=== PATIENT | male | born 1930 | race Caucasian/White ===

== ENCOUNTER 2016-11-10 14:43 | Observation (INO) | payer MEDICARE ==
[2016-11-10 15:44] LABS: ABSOLUTE NEUTROPHIL COUNT 3.1 K/mm3 (1.8-7.7); BASO % 0.2 % (0.2-1.0); HEMATOCRIT 31.7 % (32.0-52.0); HEMOGLOBIN 9.5 gm/l (14.0-18.0); IMM NEUT # 0.1 K/mm3 (0-0.2); IMM NEUT% 3.5 % (0-1); LYMPH # 0.7 (1.0-4.8); LYMPH % 17.4 % (15-45); MEAN CELL VOLUME 108.2 fl (80.0-94.0); MEAN CORPUSCULAR HEMOGLOBIN 32.4 pg (27.0-31.0); MEAN PLATELET VOLUME 11.2 fl (7.4-10.4); MONO # 0.1 (0.0-0.8); MONO % 1.5 % (4-12); NEUT % 76.4 % (43-75); PLATELET COUNT 79 K/mm3 (130-400); RED CELL DISTRIBUTION WIDTH 17.4 % (11.5-14.5)
[2016-11-10 15:52] LABS: CALCIUM 8.5 mg/dL (8.6-10.3)
--- NOTE | 2016-11-10 15:58 | CT ---
EXAMINATION: Noncontrast cranial CT. CLINICAL INDICATION: Ground-level fall. Head trauma. Scalp swelling. TECHNIQUE: A noncontrast cranial CT scan was obtained. Axial images were acquired from just above the vertex through the skull base. 4 mm stacked axial, coronal, and sagittal reconstructions were reviewed. COMPARISONS: None FINDINGS: The CSF containing spaces are prominent throughout. There is diminished attenuation within the periventricular white matter tracts bilaterally. No acute intercranial hemorrhage, mass or mass effect is identified. No extra-axial fluid collections are detected. The visualized segments of the posterior fossa are unremarkable. The cerebellar pontine angle cisterns are symmetric. The osseous structures are intact. The paranasal sinuses are clear. The visualized portions of the orbits are unremarkable. The mastoid sinuses are normal and symmetric. There is a right posterior scalp hematoma. No adjacent fracture is identified. IMPRESSION: No acute intracranial abnormalities identified. There is moderate global diffuse atrophy and microvascular ischemic changes. Right posterior scalp hematoma is noted. The findings were uploaded to the electronic medical record for review at approximately 4:00 PM 11/10/2016
--- NOTE | 2016-11-10 16:03 | CT ---
EXAMINATION: Cervical spine CT without contrast. CLINICAL INDICATION: Ground-level fall. Head trauma. Neck pain. COMPARISON: Prior cervical spine radiographs dated 06/14/2006 TECHNIQUE: [employer] 64 slice scanner was utilized. The examination is diagnostic. Axial images were acquired from the posterior fossa to the T2 vertebral body. 2 mm stacked images were acquired in the axial, sagittal, and coronal planes. Bone and soft tissue windows were utilized. FINDINGS: There is normal alignment of the cervical vertebral bodies. No displaced fracture is identified. Multilevel facet arthropathy is noted. No acute spinous process fracture is identified. Calcifications posterior to the spinous processes of the upper cervical levels are again evident. There is multilevel intervertebral disc space narrowing with endplate sclerosis and osteophyte formation. The paravertebral soft tissues are unremarkable The visualized segments of the lung apices are unremarkable. IMPRESSION: No displaced cervical fracture is identified. Multilevel spondylosis changes are noted. The findings were uploaded to the electronic medical record for review at approximately 4:04 PM 11/10/2016
--- NOTE | 2016-11-10 16:26 | RAD ---
EXAMINATION: ELBOW -RIGHT 3-4 VIEWS CLINICAL INDICATION: Fall. Right elbow pain. COMPARISON:None FINDINGS: No displaced fractures currently identified. The joint space relationships of the right elbow are maintained. Anterior posterior fat pads are noted involving the distal humerus. A nondisplaced fracture cannot be excluded. IMPRESSION: Right elbow effusion. A nondisplaced fracture cannot be excluded. The joint space relationships are maintained.
--- NOTE | 2016-11-10 16:29 | RAD ---
EXAMINATION:CHEST - 2 VIEWS CLINICAL INDICATION: Ground-level fall. Injuries. COMPARISON: Single view chest dated 12/16/2010 FINDINGS: Heart size remains stable. Atherosclerotic plaquing of the thoracic aorta is noted. There is no adenopathy identified. There is no pleural effusion. Very prominent bronchovascular markings are noted. Coarsened interstitial changes involve the lower lung zones. There is no hyperinflation. Median sternotomy wires are noted. IMPRESSION: Prominent interstitium involving the lower lung zones. Findings may reflect CHF versus chronic fibrotic change. These are more pronounced in comparison to 12/16/2010. Patient status post median sternotomy. Senescent changes of the chest are noted.
[2016-11-10 16:51] LABS: TROPONIN I 0.02 ng/ml (0.0-0.06)
[2016-11-10 16:54] LABS: CKMB ISOENZYME 2.7 ng/ml (0.6-6.3)
[2016-11-10] MEDS ORDERED: PNEUMOCOCCAL 23-VAL P-SAC VAC 0.5 ML VIAL IM V ONE (18:21)
[2016-11-10] MEDS ORDERED: BISACODYL 5 MG TABLET.EC PO PRN (19:28)
[2016-11-10] MEDS ORDERED: SODIUM CHLORIDE 0.9% 100 ML IV PRN (19:28)
[2016-11-10] MEDS ORDERED: CALCIUM CARBONATE 500 MG TAB.CHEW PO PRN (19:28)
[2016-11-10] MEDS ORDERED: BLISTEX LIPSTICK 1 EACH TP PRN (19:28)
[2016-11-10] MEDS ORDERED: BISACODYL 10 MG SUP PR PRN (19:28)
[2016-11-10] MEDS ORDERED: ACETAMINOPHEN 325 MG TABLET PO PRN (19:28)
[2016-11-10] MEDS ORDERED: MENTHOL/CETYLPYRD 1 EACH LOZENGE PO PRN (19:28)
[2016-11-10] MEDS ORDERED: SODIUM CHLORIDE 0.9% 1,000 ML IV SCH (19:30)
[2016-11-10] MEDS ORDERED: INSULIN ASPART (DOSE) 100 UNITS/1 ML SUB-Q PRN (20:00)
[2016-11-10] MEDS ORDERED: CEFTRIAXONE 1 GRAM DUPLEX 1 G in Premix (D5W) 50 ml 1 EACH IV SCH (20:15)
[2016-11-10 20:32] LABS: FOLIC ACID > 23.6 ng/mL (>5.9)
[2016-11-10 20:45] LABS: MAGNESIUM 1.8 mg/dL (1.9-2.7)
[2016-11-10] MEDS ORDERED: INSULIN GLARGINE (DOSE) 100 UNITS/ML UNIT SUB-Q SCH (21:00)
[2016-11-10] MEDS: DOCUSATE SODIUM 100 MG CAPSULE PO SCH (21:18)
[2016-11-10] MEDS: PANTOPRAZOLE 40 MG TABLET DR PO SCH (21:18)
[2016-11-10] MEDS: FERROUS SULFATE (65 Fe) 325 MG TABLET PO SCH (21:18)
[2016-11-10] MEDS: SODIUM BICARBONATE 650 MG TABLET PO SCH (21:40)
[2016-11-10 22:32] LABS: URINE BILIRUBIN NEGATIVE (NEGATIVE); URINE BLOOD 1+ (NEGATIVE); URINE GLUCOSE (UA) NEGATIVE (NEGATIVE); URINE LEUKOCYTE ESTERASE 1+ (NEGATIVE); URINE NITRITE NEGATIVE (NEGATIVE); URINE PROTEIN 1+ (NEGATIVE); URINE UROBILINOGEN NORMAL (0-1 mg/dl)
[2016-11-10 22:38] LABS: URINE APPEARANCE SL CLOUDY; URINE COLOR YELLOW
[2016-11-10 22:39] LABS: URINE BACTERIA 4+; URINE EPITHELIAL CELLS 0 /hpf
[2016-11-11 06:13] LABS: ABSOLUTE NEUTROPHIL COUNT 2.6 K/mm3 (1.8-7.7); BASO % 0.3 % (0.2-1.0); EOS # 0.1 (0.0-0.5); EOS % 1.3 % (0.9-2.9); HEMATOCRIT 29.8 % (32.0-52.0); HEMOGLOBIN 8.9 gm/l (14.0-18.0); IMM NEUT # 0.1 K/mm3 (0-0.2); IMM NEUT% 2.6 % (0-1); LYMPH % 26.7 % (15-45); MEAN CELL VOLUME 109.2 fl (80.0-94.0); MEAN CORPUSCULAR HEMOGLOBIN 32.6 pg (27.0-31.0); MEAN CORPUSCULAR HGB CONC 29.9 g/dl (33.0-37.0); MEAN PLATELET VOLUME 11.3 fl (7.4-10.4); MONO # 0.1 (0.0-0.8); MONO % 2.6 % (4-12); NEUT % 66.5 % (43-75); PLATELET COUNT 75 K/mm3 (130-400); RED CELL DISTRIBUTION WIDTH 17.2 % (11.5-14.5)
[2016-11-11 06:26] LABS: ALB/GLOB RATIO 1.4 (>1.0); ALBUMIN 3.4 gm/dL (3.5-5.7); CALCIUM 8.3 mg/dL (8.6-10.3)
[2016-11-11] MEDS ORDERED: LEVOTHYROXINE SODIUM 150 MCG TABLET PO SCH (07:30)
[2016-11-11 08:15] VITALS: BP 114/58
--- NOTE | 2016-11-11 08:16 | HP ---
Richy Young [id number] CHIEF COMPLAINT: Syncope. HISTORY OF PRESENT ILLNESS: The patient is an 86-year-old male who had gone to the [employer] store today. As he was leaving he had fallen and was not immediately responsive afterwards. It is unclear whether he had a loss of consciousness prior to the fall. He did strike his head leaving a large hematoma on his right parietal area and struck his right elbow although he denies any significant pain in either area. The people of the [employer] store who saw him fall ran to him and he had a return of consciousness, but was slightly irritable and somewhat confused not remembering how he had gotten his shopping items there. He was initially going to drive home, but then the people drove him home instead and he was brought to the [facility]. [facility] he was noted to have poor recent memory and so they called his family and they had brought him here. His daughter notes that he know appears to be back to himself. Patient was noted to have a goose egg like hematoma on the right posterior parietal area and some bruising on his right elbow, but otherwise he reports feeling himself and his daughter indicates he is back to feeling like himself now at this time. He denies pain. He has not had any other recent illness, but did have a urinary tract infection that was treated about a month ago. PAST MEDICAL HISTORY: Remarkable for anemia attributed to chronic kidney disease, treated with Aranesp. He has had a history of bladder cancer with high grade urothelial carcinoma treated with urostomy and ileal conduit, and cystectomy. He has had previous history of carotid artery stenosis with a CEA on the left. He has had chronic kidney disease stage IV and his baseline creatinine has been in the 2 to 3 region over the last couple of years. He has coronary artery disease, status post bypass, diabetes mellitus type 2 on insulin therapy. He has gastroesophageal reflux disease and a previous history of gastrointestinal bleed, transfused 5 units in June 2015 associated with an ulcer, history of hypertension and has been on medicines, but these have been reduced somewhat recently, hypothyroidism, moderate to severe aortic stenosis noted on echo September 2016, and he has had a history of paroxysmal atrial fibrillation. In the emergency room his daughter reports he had some atrial fibrillation. PAST SURGICAL HISTORY: Urostomy at the ileal conduit, robotic cystectomy, three vessel bypass, atrial ablation 2010, and left carotid endarterectomy. ALLERGIES: No known drug allergies. MEDICATIONS: 1. Atorvastatin 20 mg daily. 2. Vitamin D 2000 units daily. 3. Amiodarone had been discontinued recently in favor of metoprolol XL 25 mg daily. 4. Apidra AC 8 units for blood sugar up to 150, 12 units for a blood sugar of 151-250, 16 units for 251 and up. 5. He uses 15 units of Lantus at bedtime. 6. He uses pantoprazole 40 mg twice daily. 7. Renovite daily. 8. Sodium bicarbonate 650 mg three times daily. 9. Synthroid 150 mcg daily. CODE STATUS: Do not resuscitate. SOCIAL HISTORY: He is . He lives at the [facility]. He has two kids. He has a history of smoking, quit in . He is a retired banker. He has 1-2 drinks a week. he is [employer]. He enjoys fishing, hunting, and watching [place] [employer]. No pets. 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 FAMILY HISTORY: Father at age 83. Mom in her 70's of diabetes. REVIEW OF SYSTEMS: Eyes have been okay. No double vision. Ears: He uses hearing aids with moderate improvement. Nose is okay. Mouth is okay. He denies any dental pain or difficulty with chewing or malalignment. Tongue is okay. Speech is okay. Neck is okay. Breathing is okay. No heart complaints. No chest pain. Stomach is okay. No vomiting. He has had no diarrhea, no constipation. He has an ileostomy that has been present and is not bothering him. He denies any pain from fall, but does have his right arm wrapped up. Legs have been okay, although his daughter notes his legs are very weak and attributes some of this to deconditioning associated with carrying for his late when she was ill. He has had no history of stroke. He may have had a history of myocardial infarction in the past possibly suggested by his EKG. He is do not resuscitate status. PHYSICAL EXAMINATION: GENERAL: Nontoxic male alert and appropriate. VITAL SIGNS: He is reported to be 120 kg although, that seems higher than I might estimate. He is reported 5 feet 7 inches, respirations 18, blood pressure 156/70, temperature 98.0, 100% saturation on room air. HEENT: Head: He has a scalp hematoma on the right posterior parietal area, but no evidence of skull fracture or significant pain. The skin is intact and is not bleeding. Eyes are unremarkable. Pupils are equal, round, and reactive. Ears have hearing aids present bilaterally and is still somewhat hard of hearing. Nose is unremarkable. Oropharynx: Dentition is good. Mucous membranes are moist. NECK: Well healed left carotid endarterectomy scar noted. Transmitted aortic stenosis bruit is noted bilaterally in the neck. LUNGS: Clear to auscultation bilaterally. HEART: Generally regular rate and rhythm in the 90's with frequent PVC's noted on telemetry. Patient has a 3 to 4 systolic ejection murmur noted throughout the pericardium consistent with his diagnosis of atrial stenosis. ABDOMEN: Soft, nontender, nondistended. Bowel sounds are normal. No rebound, no guarding. He has a urostomy with slightly cloudy urine noted. He is not particularly tender. GENITOURINARY: Grossly normal male. EXTREMITIES: Legs, old scarring on the shins. 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 There is some hammertoe deformity, but no cellulitis, no edema, no other significant abnormality. Right arm is in splint, but fingers move well. Perfusion appears to be good. NEURO: Patient is alert and answers appropriately. LABORATORY: White count 4.0, hemoglobin 9.5, platelets 79, MCV is 108. Sodium 137, potassium 4.3, chloride 116, CO2 12, BUN 58, creatinine 3.2, glucose 137, calcium 8.5. Troponin 0.02, BNP 163, CK-MB 2.7. DIAGNOSTICS: Elbow x-ray right elbow effusion suggested but cannot rule out fracture. Chest x-ray prominent interstitium noted lower lung zones, congestive heart failure versus fibrosis status post median sternotomy. C-spine CT no fracture. Brain CT no acute changes intracranially, but a right hematoma noted externally. EKG sinus rhythm, frequent PVC's 82 beats per minute. EKG suggests right bundle branch block, OR 194, QRS 108, incomplete right bundle branch block, QTC 403, axis 22, Q-wave noted in V1. ASSESSMENT AND PLAN: 1. Syncope with head injury, possible concussion, however, resolved. Patient has multiple reasons for syncope including history of atrial fibrillation, medications revised, known aortic stenosis, previous carotid disease, anemia. We will be checking ultrasound for subclavian steal. We will monitor hemoglobin. Continue on telemetry. His recent echo had shown known moderate to severe aortic stenosis. 2. Chronic anemia with history of chronic kidney disease on Aranesp. Will monitor hemoglobin and hematocrit. With elevated MCV we will check B12 and folate. He may have a myelodysplasia with a mild pancytopenia seen. Follow up per primary care and nephrology. 3. Chronic kidney disease with a creatinine of 3.2 mildly elevated from before. Plan gentle intravenous fluids over night and will monitor. 4. Contusion head and right elbow, we will monitor. He at this time does not complain of these. 5. Reported deconditioning with generalized weakness. Plan physical therapy and occupational therapy. 6. History of urostomy with remote history of bladder cancer. We will check urinalysis for the possibility of a urinary tract infection contributing to syncope. 7. Diabetes mellitus type 2. We will plan to use Lantus and sliding scale insulin. 8. Do not resuscitate status ordered. 9. Venous thrombosis prophylaxis. Encourage ambulation and activity. JOB: CC: Dr. Laura Rajan, data integration architect Dr. Karie Luke, laminating press operator
[2016-11-11] MEDS: FERROUS SULFATE (65 Fe) 325 MG TABLET PO SCH (08:41)
[2016-11-11] MEDS: DOCUSATE SODIUM 100 MG CAPSULE PO SCH (08:42)
[2016-11-11] MEDS: PANTOPRAZOLE 40 MG TABLET DR PO SCH (08:42)
[2016-11-11] MEDS: SODIUM BICARBONATE 650 MG TABLET PO SCH (08:42)
[2016-11-11] MEDS ORDERED: FOLIC ACID PO SCH (09:00)
[2016-11-11] MEDS ORDERED: METOPROLOL SUCCINATE 25 MG TAB.ER.24H PO SCH (09:00)
[2016-11-11] MEDS ORDERED: VITAMIN D3 1,000 UNITS CAP.LIQ PO SCH (09:00)
[2016-11-11] MEDS ORDERED: VITAMIN B COMP W C PO SCH (09:00)
--- NOTE | 2016-11-11 09:49 | US ---
CAROTID ULTRASOUND HISTORY: Syncope, prior endarterectomy. Sonography was performed of the extracranial vessels with a focus on the arterial structures. Measurement of carotid stenosis is based on velocity parameters that correlate the residual internal carotid diameter with [place] Symptomatic Carotid Endarterectomy Trial (NASCET)-based stenosis levels. GRAYSCALE IMAGING: Intimal wall thickening with soft plaque deposition at the carotid bifurcation without gross stenosis by visual inspection. Postprocedural change of the left carotid bifurcation compatible with history of endarterectomy with irregular plaque deposition along the left common carotid artery. Evaluation of the mid to distal left internal carotid artery is limited due to artifact. ? PULSED-WAVE DOPPLER DATA (peak systolic velocity/end-diastolic velocity [cm/s]) Right proximal CCA: 100/26 Right distal CCA: 105/29 Right proximal ICA: 120/32 Right distal ICA: 164/48 Right ECA: 386/diastolic velocity not acquired. Right vertebral: 38/diastolic velocity not acquired. Left proximal CCA: 187/36 Left distal CCA: 201/28 Left proximal ICA: 160/38 Left distal ICA: Absent versus mildly reversed end-diastolic flow identified. Peak systolic velocity approximately 120 cm/s. Left ECA: 154/diastolic velocity not acquired. Left vertebral: 49/diastolic velocity not acquired. ICA/CCA RATIOS: 1.6 on the right, 0.8 on the left. VERTEBRAL ARTERY FLOW: Antegrade. IMPRESSION: Postprocedural change of the left carotid bifurcation with increased velocities suspicious for 50-69% stenosis of the internal carotid artery. Elevated velocities of the common carotid artery suggest a proximal stenosis, consider CTA or MRA assessment of the neck. Elevated velocities compatible with 50-60% stenosis of the mid to distal right internal carotid artery. Antegrade flow within the vertebral arteries. Preliminary report relayed to the Emergency Medicine medical service by Dr. Nielsen on 11/10/2016, 2252 hours.
--- NOTE | 2016-11-11 11:17 | PDOC43 ---
- Subjective Chief Complaint: syncope Feels well today. W[place] to [place] [facility]. Denies faintness. - Objective Vital Signs Temperature 97.4 F 11/11/16 08:00 Pulse Rate 80 11/11/16 08:00 Respiratory Rate 16 11/11/16 08:00 Blood Pressure 114/58 11/11/16 08:00 O2 Saturation by Pulse Oximetry 98 11/11/16 08:00 Oxygen Delivery Method Room Air Oxygen Flow Rate 0 Intake and Output 11/10/16 11/11/16 11/12/16 06:59 06:59 06:59 Intake Total 550 240 Output Total 975 380 Balance -425 -140 General: Alert, Oriented x3, Cooperative, No Acute Distress HEENT: Mucous membr. moist/pink Lungs: Clear to Auscultation Bilaterally Cardiovascular: Regular Rate and Rhythm Abdomen: Soft, Normal Bowel Sounds, Other (urostomy bag on right with slightly cloudy urine.), No Tenderness, No Masses Extremities: Pulses Diminished but Palpable, No Edema Skin: Normal Color Neurological: Normal Speech Psych/Mental Status: Normal Mood Laboratory 11/11/16 05:30 11/11/16 05:30 11/11/16 11/11/16 11/10/16 07:41 05:30 21:35 RBC 2.73 L MCV 109.2 H MCH 32.6 H MCHC 29.9 L RDW 17.2 H BUN 55 H Estimated GFR 19 L POC Capillary Glucose 111 H 161 H Calcium 8.3 L Total Protein 5.9 L Albumin 3.4 L % Immature Granulocyt 2.6 H Current Medications: Current meds reviewed in EMR. - Problems: Assessment/Plan (1) Syncope Qualifiers: Syncope type: unspecified Qualifier Code: (R55) Syncope and collapse Status: AcuteAssessment/Plan: Unclear cause but likely related to aortic stenosis and dehydration. Encourage fluid intake. (2) Anemia Status: ChronicAssessment/Plan: Due to chronic kidney disease and on Aranesp, stable. (3) Aortic stenosis Qualifiers: Cardiac valve disease etiology: etiology unspecified Qualifier Code: ( I35.0) Nonrheumatic aortic (valve) stenosis Status: ChronicAssessment/Plan: Likely the cause of syncope, not a surgical candidate. (4) Carotid artery disease Qualifiers: Laterality: right Qualifier Code: (I77.9) Disorder of arteries and arterioles, unspecified Status: ChronicAssessment/Plan: <70% stenosis, no treatment needed (5) Chronic kidney disease Qualifiers: Chronic kidney disease stage: stage 4 (severe) Qualifier Code: (N18.4) Chronic kidney disease, stage 4 (severe) Status: ChronicAssessment/Plan: due to DM. With current YOUNG due to dehydration, encourage fluids. (6) Diabetes Qualifiers: Diabetes mellitus type: type 2 Diabetes mellitus complication status: with kidney complications Diabetes mellitus complication detail: with chronic kidney disease Diabetes mellitus terminal manager insulin use: with assisted use Chronic kidney disease stage: stage 4 (severe) Qualifier Code: (E11.22) Type 2 diabetes mellitus with diabetic chronic kidney disease Status: ChronicAssessment/Plan: BG well controlled. (7) Presence of urostomy Status: ChronicAssessment/Plan: with possible bacterial colonization contributing to syncope. Continue Abx treatment with cephalexin. VTE Prophylaxis: not indicated Disposition: Discharge back to [facility] with [facility] PT[facility]OT
== END 2016-11-11 13:00 | disposition home health service (06) ==
LOC: ED 14:43 → MS 16:25
PROVIDERS: ADMIT Family Medicine; ATTEND Family Medicine
DX: S09.90XA Unspecified injury of head, initial encounter (principal); D50.0 Iron deficiency anemia secondary to blood loss (chronic); I35.0 Nonrheumatic aortic (valve) stenosis; N18.4 Chronic kidney disease, stage 4 (severe); E11.9 Type 2 diabetes mellitus without complications; I48.91 Unspecified atrial fibrillation; Z66 Do not resuscitate; Z79.84 Long term (current) use of oral hypoglycemic drugs; W19.XXXA Unspecified fall, initial encounter; Y92.009 Unspecified place in unspecified non-institutional (private) residence as the place of occurrence of the external cause